=== PATIENT | female | born 1995 ===

== ENCOUNTER 2019-04-28 06:14 | Day surgery (SDC) | payer OTHER ==
--- NOTE | 2019-03-24 09:07 | Pre-Procedure Note/Attestation ---
Pre-Procedure Note/Attestation Complete Prior to Procedure Planned Procedure: right - shoulder Procedure Narrative: shoulder diagnostic arthroscopy, sad Indications for Procedure Pre-Operative Diagnosis: right shoulder internal derangement Attestation I attest that I discussed the nature of the procedure; its benefits; risks and complications; and alternatives (and the risks and benefits of such alternatives ), prior to the procedure, with the patient (or the patient's legal veterans service representative). I attest that, if there was a reasonable possibility of needing a blood transfusion, the patient (or the patient's legal veterans service representative) was given the [facility] standardized written summary, pursuant to the Bib Jackie Blood Safety Act ([place] Health and Safety Code # 1645, as amended). I attest that I re-evaluated the patient just prior to the surgery and that there has been no change in the patient's H&P, except as documented below: Ty Faustin MD Mar 24, 2019 09:07
--- NOTE | 2019-03-24 09:07 | Operative Note - PDOC ---
Operative Note Operative Note Pre-op Diagnosis: right shoulder internal derangement Procedure: see op report Post-op Diagnosis: same as pre-op plus Anesthesia: regional Specimen: none Complications: none Condition: stable Estimated Blood Loss: none Implant(s) used?: No Ty Faustin MD Mar 24, 2019 09:07
[~2019-04-28] VITALS: Ht 157.5 cm; Wt 77.6 kg
[2019-04-28] VITALS (15 sets, daily range): BP systolic 89–129; BP diastolic 39–80
[~2019-04-28 06:14] MED LIST: D5 1/2NS 1,000 ML IV SCH; HYDROcodone/Acetamin 5/325 tab ORAL PRN; HYDROmorphone 1mg/ml Carpuject SUBQ PRN; Tylenol #3 tab (300mg/30mg) ORAL PRN; ceFAZolin 1gm IVPB IVPB ONE; celeBREX 200mg Cap **SURGERY PATIENTS ONLY ORAL ONE; oxyCONTIN 20mg tab ORAL ONE
[2019-04-28] MEDS ORDERED: DEPO-PROVE150 MG/1 M IM (07:03)
--- NOTE | 2019-04-28 07:05 | NUR ---
IV LR WAS STARTED BY DARBY BERRYOPS RN. NO S/S OF INFILTRATION.
--- NOTE | 2019-04-28 07:39 | Operative Note - PDOC ---
Operative Note Operative Note Pre-op Diagnosis: right shoulder internal derangement Procedure: see op report Post-op Diagnosis: same as pre-op plus Anesthesia: regional Specimen: none Complications: none Condition: stable Estimated Blood Loss: none Implant(s) used?: Yes Ty Faustin MD April 28, 2019 07:39
--- NOTE | 2019-04-28 07:39 | Pre-Procedure Note/Attestation ---
Pre-Procedure Note/Attestation Complete Prior to Procedure Planned Procedure: right Procedure Narrative: shoulder arthroscopy, sad Indications for Procedure Pre-Operative Diagnosis: right shoulder internal derangement Attestation I attest that I discussed the nature of the procedure; its benefits; risks and complications; and alternatives (and the risks and benefits of such alternatives ), prior to the procedure, with the patient (or the patient's legal commissary representative). I attest that, if there was a reasonable possibility of needing a blood transfusion, the patient (or the patient's legal commissary representative) was given the [facility] standardized written summary, pursuant to the Bib Crozier Blood Safety Act ([place] Health and Safety Code # 1645, as amended). I attest that I re-evaluated the patient just prior to the surgery and that there has been no change in the patient's H&P, except as documented below: Ty Faustin MD April 28, 2019 07:39
[2019-04-28] MEDS ORDERED: HYDROcodone/Acetamin 5/325 tab ORAL PRN (07:45)
[2019-04-28] MEDS ORDERED: Tylenol #3 tab (300mg/30mg) ORAL PRN (07:45)
[2019-04-28] MEDS ORDERED: HYDROmorphone 1mg/ml Carpuject SUBQ PRN (07:45)
[2019-04-28] MEDS ORDERED: D5 1/2NS 1,000 ML IV SCH (07:45)
--- NOTE | 2019-04-28 08:02 | Anethesia Preoperative Eval ---
Anesthesia Pre-op PMH/ROS General Date of Evaluation: April 28, 2019 Anesthesiologist: Roe ASA Score: ASA 2 Mallampati Score Class I : Soft palate, uvula, fauces, pillars visible Class II: Soft palate, uvula, fauces visible Class III: Soft palate, base of uvula visible Class IV: Only hard plate visible Mallampati Classification: Class II Surgeon: Ramin Diagnosis: Right shoulder pain Surgical Procedure: Right shoulder arthroscopy Anesthesia History: none Family History: no anesthesia problems Allergies: Coded Allergies: No Known Allergies (Unverified , 03/23/19) Medications: see eMAR Patient NPO?: Yes NPO Date: April 27, 2019 NPO Time: 22:00 Past Medical History Cardiovascular: Denies: HTN, CAD, [place], valve dz, arrhythmia, other Pulmonary: Denies: asthma, COPD, GARRETT, other Gastrointestinal/Genitourinary: Denies: GERD, CRI, ESRD, other Neurologic/Psychiatric: Reports: other - migraines; Denies: dementia, CVA, depression/anxiety, TIA Endocrine: Denies: DM, hypothyroidism, steroids, other HEENT: Denies: cataract (L), cataract (R), glaucoma, [place] (L), [place] (R), other Hematology/Immune: Denies: anemia, DVT, bleeding disorder, other Musculoskeletal/Integumentary: Denies: OA, RA, DJD, DDD, edema, other PSxH Narrative: Denies Anesthesia Pre-op Phys. Exam Physician Exam Last Vital Signs Date Time Temp Pulse Resp B/P (MAP) Pulse Ox O2 Delivery O2 Flow Rate FiO2 04/28/19 07:15 98.1 90 20 129/73 99 Room Air Constitutional: NAD Cardiovascular: RRR Respiratory: CTA Airway Exam Mallampati Score: Class II MO: full ROM: full Teeth: intact Anesthesia Pre-op A/P Labs see chart Urine Test Test 04/28/19 06:25 Urine HCG, Qualitative Negative (NEGATIVE) Risk Assessment & Plan Assessment: ASA II Plan: GA Status Change Before Surgery: No Pre-Antibiotics Drug: Ancef 1g Given Within 1 Hr of Incision: Yes Marina Nicole MD April 28, 2019 08:02
[2019-04-28] MEDS ORDERED: LR 1000ml 1,000 ML IVLG SCH (08:24)
[2019-04-28] MEDS ORDERED: Metoclopramide 10mg/2ml Inj IVP PRN (08:30)
[2019-04-28] MEDS ORDERED: LORazepam Inj 2mg/ml 1ml IV PRN (08:30)
[2019-04-28] MEDS ORDERED: Ketorolac 30mg Inj IV PRN (08:30)
[2019-04-28] MEDS ORDERED: DiphenhydrAMINE 50mg/ml Inj IVP PRN (08:30)
[2019-04-28] MEDS ORDERED: Hydromorphone 0.5mg/0.5ml inj IVP PRN (08:30)
[2019-04-28] MEDS ORDERED: Midazolam 2mg/2ml Inj IVP PRN (08:30)
[2019-04-28] MEDS ORDERED: fentaNYL 100 mcg/2 mL IV PRN (08:30)
--- NOTE | 2019-04-28 08:39 | Immediate Post-Op Evaluation ---
Immediate Post-Op Evalulation Immediate Post-Op Evalulation Procedure: Removal of left knee hardware and left middle finger mass Date of Evaluation: April 28, 2019 Time of Evaluation: 08:42 IV Fluids: 500 Blood Products: 0 Estimated Blood Loss: 10 Urinary Output: 0 Blood Pressure Systolic: 95 Blood Pressure Diastolic: 83 Pulse Rate: 87 Respiratory Rate: 16 O2 Sat by Pulse Oximetry: 100 Temperature (Fahrenheit): 97.4 Pain Score (1-10): 0 Nausea: No Vomiting: No Complications 0 Patient Status: awake, reacts, patent, none Hydration Status: adequate Drug: Ancef 1g Given Within 1 Hr of Incision: Yes Marina Nicole MD April 28, 2019 08:39
--- NOTE | 2019-04-28 08:41 | 48 Hour Post Anesthesia Eval ---
Post Anesthesia Evaluation Procedure: Removal of left knee hardware and left middle finger mass Date of Evaluation: April 28, 2019 Airway: patent Nausea: No Vomiting: No Pain Intensity: 0 Hydration Status: adequate Cardiopulmonary Status: at baseline Mental Status/LOC: patient returned to baseline Post-Anesthesia Complications: 0 Follow-up care needed: ready to discharge Marina Nicole MD April 28, 2019 08:40
[2019-04-28] MEDS ORDERED: Ketorolac 30mg Inj ONE ×2 (08:43→09:00)
[2019-04-28] MEDS ORDERED: Kenalog-40 1ml Vial ONE (08:43)
[2019-04-28] MEDS ORDERED: EPINEPHrine 1mg/1ml Amp ONE (08:43)
[2019-04-28] MEDS ORDERED: Midazolam 2mg/2ml Inj ONE (08:58)
[2019-04-28] MEDS ORDERED: Lidocaine 1% MPF 10mg/ml 5ml ONE (08:58)
[2019-04-28] MEDS ORDERED: fentaNYL 100 mcg/2 mL IV ONE (08:58)
[2019-04-28] MEDS ORDERED: Propofol 200mg/20ml IV ONE (08:58)
[2019-04-28] MEDS ORDERED: Ropivacaine 5mg/ml Vial 30ml INJ ONE (09:00)
[2019-04-28] MEDS ORDERED: Metoclopramide 10mg/2ml Inj ONE (09:00)
[2019-04-28] MEDS ORDERED: Dexamethasone 4mg/ml vial ONE (09:00)
[2019-04-28] MEDS ORDERED: LR 1000ml ONE (09:30)
[2019-04-28] MEDS ORDERED: Zemuron 50mg/5ml Inj IV ONE (09:30)
[2019-04-28] MEDS ORDERED: NS Irrig 4000ml IRRIG ONE (09:30)
[2019-04-28] MEDS ORDERED: Ketamine 500mg Inj ONE (09:48)
[2019-04-28] MEDS ORDERED: Glycopyrrolate 0.2mg/ml 1ml Vial ONE (09:56)
--- NOTE | 2019-04-28 10:11 | Immediate Post-Op Evaluation ---
Immediate Post-Op Evalulation Immediate Post-Op Evalulation Procedure: Right shoulder arthroscopy Date of Evaluation: April 28, 2019 Time of Evaluation: 11:31 IV Fluids: 1.2L Blood Products: 0 Estimated Blood Loss: min Urinary Output: 0 Blood Pressure Systolic: 96 Blood Pressure Diastolic: 46 Pulse Rate: 99 Respiratory Rate: 17 O2 Sat by Pulse Oximetry: 99 Temperature (Fahrenheit): 97.4 Pain Score (1-10): 0 Nausea: No Vomiting: No Complications 0 Patient Status: awake, reacts, patent, none Hydration Status: adequate Drug: Ancef 1g Given Within 1 Hr of Incision: Yes Marina Nicole MD April 28, 2019 10:11
--- NOTE | 2019-04-29 00:31 | Operative Note - Dictated ---
DATE OF OPERATION: 04/28/2019 PREOPERATIVE DIAGNOSIS: Right shoulder internal derangement, possible labral tear. POSTOPERATIVE DIAGNOSES: 1. Right shoulder anterior labral tear. 2. Chondral damage anterior inferior glenoid grade 3 3. Intra-articular loose body. PROCEDURE: 1. Right shoulder extensive debridement. 2. Right shoulder anterior labral repair. 3. Right shoulder removal of intra-articular loose body. SURGEON: Ty Faustin M.D. ANESTHESIA: Interscalene with general. INDICATION FOR PROCEDURE: The patient is a pleasant 23-year-old female, who sustained a injury to the right shoulder, had MRI, which showed anterior labral tear. She failed conservative treatment, continued to have symptoms, elected to undergo right shoulder arthroscopy, possible . Risks, limitations, expectations, and complications of procedure were discussed in detail. All questions addressed. DESCRIPTION OF PROCEDURE: After informed consent was obtained, the patient was brought to the operating room. The patient was placed on interscalene general anesthesia. The patient was then carefully placed in the beach chair position. Right shoulder was prepped and draped in a sterile manner. Time-out was performed. Inferolateral stab incision was then made. Trocar was introduced into the shoulder joint. There was significant tear of the anterior labrum. There was a grade 3 chondral damage of the anterior inferior glenoid. Superior labrum was intact. The rotator cuff was intact. The anteromedial working portal was established. The labrum was debrided. The anterior margin of the glenoid was debrided of soft tissue. There was intra-articular loose fragment of cartilage that was floating, this was removed using a grasper. Once this was done, the anterior labrum was stabilized at the anterior margin of the glenoid. Using the , camera was then removed. Portal sites were closed with 3-0 Monocryl sutures. Steri-Strips and a sterile dressing were applied. ESTIMATED BLOOD LOSS: None. COMPLICATIONS: None. SPECIMENS: None. IMPLANTS: Include 1 Biomet anchor. Ty Faustin M.D. DR: Nichelle JOB#: [id number] CC:
== END 2019-04-28 14:30 | disposition home or self-care (01) ==
LOC: SUR 06:14
DX: S43.401A Unspecified sprain of right shoulder joint, initial encounter (principal); M24.111 Other articular cartilage disorders, right shoulder; M24.011 Loose body in right shoulder; X58.XXXA Exposure to other specified factors, initial encounter; Y92.9 Unspecified place or not applicable
CPT/HCPCS: 29823; 81025; J0171; J0690; J1100; J1170; J1885; J2250; J2405; J2704; J2765; J2795; J3010; J3490; 94003; 94150; C1713